=== PATIENT | male | born 1985 | race Caucasian/White ===

== ENCOUNTER 2017-06-15 10:14 | Emergency (ER) | payer SELFPAY ==
[2017-06-15 10:16] VITALS: BP 148/68; PULSE 69; RESP 16; TEMP 36.6; O2SAT 97; BMI 36.1
--- NOTE | 2017-06-15 10:34 | VDUE_ITS ---
Reason For Study: LUE pain Right Proximal Left Proximal Right subclavian vein is spontaneous, widely Left jugular vein is spontaneous, widely patent, phasic, with no intraluminal patent, phasic, with no intraluminal echogenicity noted. echogenicity noted. Left subclavian vein is spontaneous, widely patent, phasic, with no intraluminal echogenicity noted. Left Arm Left axillary vein is spontaneous, patent, phasic, competent, compressible and demonstrates augmentation. Brachial vein intraluminal echogenicity extends fromantecube to near mid bicep.. Left cephalic vein is compressible. Basilic vein intraluminal echogenicity extends fromantecube to proximal bicep, does not approach the axillary vein.. < Interpretation Summary Acute deep vein thrombosis is noted in the left brachial vein from the left antecubital space to the level of the mid-bicep. The remainder of the left upper extremity deep venous system is patent. Acute superficial thrombophlebitis is noted in the left basilic vein from the left antecubital level to the proximal bicep, but not approaching the deep venous system. The left cephalic vein is patent and compressible. Ordering Physician: Mary Lou Rubi Referring Physician: OTD Performed By: Maria D Bowers, FERMÍN, RVT
--- NOTE | 2017-06-15 10:37 | ED.VISSUMM ---
- ER Visit Summary Date of Service: 06/15/17 Chief Complaint: Left arm pain and swelling History of Present Illness: The patient is a 32 M reports pain and mild swelling to the left arm over the last day and a half. Patient does not know of an injury but does do work cecily. He has a history of DVTs and PE. He is currently on Coumadin but states he did miss a couple days of his medications last week. Patient denies paresthesias or weakness. Physical Examination: Vital signs are unremarkable. Patient sitting upright in bed no acute distress. He is alert and talkative. Head neck examination is unremarkable. Heart is regular rate and rhythm. No lung sounds are clear. Abdomen is soft nontender. Left upper extremity examination is significant for mild tenderness over the medial left arm around the elbow. There is mild erythema but no overt cellulitis. There are no open wounds. He has full range of motion with no pain at the elbow. He has strong distal pulses and normal sensation throughout. Test Results: Left upper extremity ultrasound feels brachial vein clot from the antecubital to the mid bicep. The basilic vein reveals a clot from an acute to the proximal bicep. It does not approach the axillary vein. INR returns subtherapeutic at 1.2. Emergency Department Course and Treatment: Patient be given a single dose of Lovenox here. I did discuss with him that upper extremity clots are much less likely to propagate and lower extremity clots. He refuses Lovenox for home. He will increase his Coumadin to 10 mg for the next 2 nights. He is to have his INR rechecked in 4-5 days. Treatment Plan: [] Disposition: Discharge Impression: 1. Left upper extremity DVT 2. Subtherapeutic INR This note was generated with [employer] dictation software. It may contain incorrect words, spelling, and punctuation that were not noted in review of the chart prior to signing ED Disposition - Plan for ED Patient: Disposition: Home or Assisted Living Chief Complaint: Edema Instructions: ED DVT Referrals: Tab Garcia MD [Primary Care Provider] - Additional Instructions: Adjust Coumadin dosing as discussed and have INR rechecked next week.
[2017-06-15 11:31] LABS: International Normalized Ratio 1.2; Prothrombin Time (Protime)PT. 15.1 SECONDS (11.7-14.9)
--- NOTE | 2017-06-15 12:19 | ED.DEP ---
ED Disposition - Plan for ED Patient: Disposition: Home or Assisted Living Chief Complaint: Edema Instructions: ED DVT Referrals: Tab Garcia MD [Primary Care Provider] - Additional Instructions: Adjust Coumadin dosing as discussed and have INR rechecked next week.
[2017-06-15] MEDS: Enoxaparin 100 MG/ML Syringe 130 MG SC (12:46)
[2017-06-15 12:48] VITALS: BP 123/63; PULSE 71; RESP 18
== END 2017-06-15 12:51 | disposition home or self-care (01) ==
PROVIDERS: Emergency Provider Emergency Medicine; Family Provider Family Medicine; PCP Family Medicine
DX: I82.622 Acute embolism and thrombosis of deep veins of left upper extremity (principal); Z72.0 Tobacco use; Z79.01 Long term (current) use of anticoagulants; Z86.718 Personal history of other venous thrombosis and embolism
CPT/HCPCS: 36415; 85610; 93971; 96372; 99282